=== PATIENT | female | born 1990 | race Caucasian/White ===

== ENCOUNTER 2020-11-18 16:05 | Emergency (ER) | payer SELFPAY ==
[~2020-11-18] VITALS: Ht 175 cm; Wt 101.0 kg
--- NOTE | 2020-11-18 16:19 | ED Lower Extremity ---
General Chief Complaint: Lower Extremity Stated Complaint: R IVONNE INJ Source: patient Exam Limitations: no limitations History of Present Illness Date Seen by Provider: Nov 18, 2020 Time Seen by Provider: 16:19 Initial Comments To ER with right foot injury. She initially injured this about a week ago while going downstairs, saw [facility] the onset had x-rays done and was told it was normal. She believes she reinjured it while getting out of the pool on Tuesday. Has pain over the distal metatarsals plantar surface and little toe. She is wearing a postop shoe. Onset: just prior to arrival Severity: moderate Method of Injury: direct blow Modifying Factors: Worse With Movement Allergies and Home Medications Allergies Coded Allergies: No Known Drug Allergies (Verified Allergy, Unknown, 02/08/08) Patient Home Medication List Home Medication List Reviewed: Yes Review of Systems Constitutional: see HPI EENTM: see HPI Respiratory: no symptoms reported Cardiovascular: no symptoms reported Genitourinary: no symptoms reported Musculoskeletal: see HPI Skin: no symptoms reported Psychiatric/Neurological: No Symptoms Reported Past Rimtycb-Dcqeym-Nqzyfr Hx Patient Social History Alcohol Use: Denies Use Smoking Status: Never a Smoker Recent Hopitalizations: No Past Medical History Surgeries: No Respiratory: No Cardiac: No Neurological: No Reproductive Disorders: No Genitourinary: No Gastrointestinal: No Musculoskeletal: No Endocrine: No Psychosocial: No Integumentary: No Blood Disorders: No Physical Exam Vital Signs Vital Signs - First Documented 11/18/20 16:16 Pulse 81 Resp 18 B/P (MAP) 129/87 (101) Pulse Ox 98 O2 Delivery Room Air Capillary Refill : Height, Weight, BMI Height: '" Weight: lbs. oz. kg; BMI Method: General Appearance: WD/WN, no apparent distress Respiratory: no respiratory distress, no accessory muscle use Hips: bilateral hip non-tender, bilateral hip normal inspection, bilateral hip normal range of motion Legs: bilateral leg non-tender, bilateral leg normal inspection, bilateral leg normal range of motion Knees: bilateral knee non-tender, bilateral knee normal inspection, bilateral knee normal range of motion Ankles: bilateral ankle non-tender, bilateral ankle normal inspection, bilateral ankle normal range of motion Feet: left foot non-tender, left foot normal inspection; right foot pain, right foot soft tissue tenderness Neurologic/Psychiatric: alert, normal mood/affect, oriented x 3 Skin: normal color, warm/dry Progress/Results/Core Measures Results/Orders My Orders Orders - VERNON VIDAL APRN Foot, Right, 3 View (11/18/20 16:16) Vital Signs/I&O 11/18/20 16:16 Pulse 81 Resp 18 B/P (MAP) 129/87 (101) Pulse Ox 98 O2 Delivery Room Air Departure Impression Primary Impression: Fracture of toe Disposition: HOME, SELF-CARE Condition: Stable Departure-Patient Inst. Decision time for Depature: 16:52 Referrals: ZENA DILLARD DO (PCP/Family) Primary Care Physician Patient Instructions: Toe Fracture (DC) Add. Discharge Instructions: 1. Return to ER for any concerns 2. Follow up with your doctor next week All discharge instructions reviewed with patient and/or family. Voiced understanding. Scripts Hydrocodone/Acetaminophen (Hydrocodone-Acetamin 5-325 mg) 1 Each Tablet 1 TAB PO Q4H PRN for PAIN-MODERATE (5-7), #14 TAB Prov: VERNON VIDAL APRN 11/18/20 VERNON VIDAL APRN Nov 18, 2020 16:19
--- NOTE | 2020-11-18 16:49 | Diagnostic Imaging Report ---
INDICATION: Fall. Pain. Injury. COMPARISON: None. FINDINGS: Three radiographic views of the right foot were obtained. There is fusion of the fifth middle and distal phalanx. This is referred to as one entity (distal phalanx). Subtle curvilinear lucency is identified extending through the proximal portions of the fifth distal phalanx. There is intra-articular extension. Findings are consistent with hairline fracture. There is no significant displacement of fracture fragments. No other acute osseous abnormalities are seen. Joint spaces are maintained. No unexpected radiopaque foreign bodies are identified. IMPRESSION: 1. Acute-appearing nondisplaced fracture of the distal fifth phalanx as above. Dictated by: Dictated on workstation # [id number]
[2020-11-18] MEDS ORDERED: ACHD5005 PO (17:04)
[2020-11-18 17:40] VITALS: BP 97/62
== END 2020-11-18 17:38 | disposition home or self-care (01) ==
LOC: EDUNIT# 16:05 → ER 16:08
DX: S92.534A Nondisplaced fracture of distal phalanx of right lesser toe(s), initial encounter for closed fracture (principal); W10.9XXA Fall (on) (from) unspecified stairs and steps, initial encounter
CPT/HCPCS: 73630